=== PATIENT | female | born 1995 | race Two or more races ===

== ENCOUNTER 2024-10-16 09:45 | Emergency (ER) | payer BC, MEDICAID, SELFPAY ==
[2024-10-16 10:04] VITALS: BP 118/78; PULSE 113; RESP 19; TEMP 39.4; O2SAT 97; BMI 30.3
--- NOTE | 2024-10-16 10:11 | XR_ITS ---
Examination: PA lateral chest 2 views Technique: Upright PA lateral chest 2 views Indications: Coughing beginning 4 days ago Findings: Normal heart size No lobar pneumonia Minor subsegmental atelectasis left midlung No pulmonary edema Intact osseous structures Impression: No pneumonia identified
[2024-10-16 10:36] VITALS: TEMP 39.4
[2024-10-16] MEDS: ACETAMINOPHEN 500 MG TABLET 1000 MG PO (10:36)
[2024-10-16] MEDS: ONDANSETRON ODT 4 MG TABRAP PO (10:37)
--- NOTE | 2024-10-16 11:21 | EDNOTE_ITS ---
Upper Respiratory Inf. RME/HPI General Chief Complaint: Flu Like Symptoms Stated Complaint: Cough, fever, SOB, vomiting Time Seen by Provider: 10/16/24 09:55 Arrival date/time: 10/16/24 09:45 28-year-old female with no significant medical problems presents the emergency department complains of cough, congestion, body aches patient reports no chest pain or shortness of breath. Patient ports fever ongoing x 1 day there are no other associated symptoms or aggravating factors no other modifying factors, patient denies taking medication before coming to ER today Limitations: no limitations Related Data Home Medications ?Medication ?Instructions ?Recorded ?Confirmed vitamins-iron fumarate 27 1 tab PO QDAY 07/23/19 07/01/23 mg iron-folic acid 0.8 mg tablet ( Vitamin) Previous Rx's ?Medication ?Instructions ?Recorded albuterol sulfate 90 mcg/actuation 2 puff inhalation QID PRN 06/15/22 aerosol inhaler shortness of breath or wheezing #8.5 grams docusate sodium 100 mg capsule 100 mg PO BID #60 caps 07/02/23 (Colace) hydrocortisone 2.5 % topical cream 1 applic ME QDAY PRN hemorrhoids 07/02/23 with perineal applicator #30 tubes (Proctosol HC) ibuprofen 800 mg tablet 800 mg PO Q6H PRN pain #90 tabs 07/02/23 lanolin 50 % topical ointment 1 applic topical TID PRN skin 07/02/23 irritation #15 tubes witch tyree 50 % topical pads 1 pad topical BID #100 ea 07/02/23 (Tucks (witch tyree)) benzonatate 100 mg capsule 100 mg PO TID #14 caps 10/16/24 ibuprofen 800 mg tablet 800 mg PO TID PRN pain #30 tabs 10/16/24 ondansetron 4 mg disintegrating 4 mg PO Q8H PRN nausea and 10/16/24 tablet vomiting #10 tabs Allergies Allergy/AdvReac Type Severity Reaction Status Date / Time No Known Allergies Allergy Verified 05/07/23 12:15 Review of Systems Review of Systems Systems Reviewed: All systems reviewed, normal except as documented Constitutional Constitutional: Reports system reviewed and no additional complaints, except as documented, Denies fever(s) and Denies headache(s) Eyes Eyes: Reports system reviewed and no additional complaints, except as documented and Denies blurry vision ENT Ears, Nose, Mouth, and Throat: Reports system reviewed and no additional complaints, except as documented, Denies headache(s), Reports nasal congestion and Reports nasal discharge Cardiovascular Cardiovascular: Reports system reviewed and no additional complaints, except as documented, Denies chest pain and Denies dyspnea Respiratory Respiratory: Reports system reviewed and no additional complaints, except as documented, Denies chest congestion, Denies cough and Denies dyspnea Gastrointestinal Gastrointestinal: Reports system reviewed and no additional complaints, except as documented and Denies abdominal pain Integumentary/Breasts Skin/Breast: Reports system reviewed and no additional complaints, except as documented and Denies rash Neurologic Neurologic: Reports system reviewed and no additional complaints, except as documented, Reports as per HPI and Denies headache(s) Past Medical History Past Medical History NEUROLOGIC: Negative Neurological Disorders or Seizures CARDIAC: Negative Cardiac Disorders or Congestive Heart Failure RESPIRATORY: Positive Asthma and Pneumonia; Negative Chronic Obstructive Pulmonary Disease (COPD) GASTROINTESTINAL: Negative Gastrointestinal Disorders GENITOURINARY: Negative Genitourinary Disorders or Renal Disease REPRODUCTIVE: Positive Previous Pregnancies; Negative Genital Herpes, Gonorrhea or Syphilis MUSCULOSKELETAL: Negative Musculoskeletal Disorders ENDOCRINE: Negative Endocrine Disorders, Diabetes Mellitus Type 1 or Diabetes Mellitus Type 2 HEMATOLOGIC: Negative Blood Disorders or Sickle Cell Disease PSYCHO/SOCIAL: Positive Depression, Anxiety and Depression OTHER HISTORY: Negative Hospitalization, Autoimmune Disease, Falls, Blood Transfusions, Blood Transfusion Reaction, Anesthesia Reactions or Cancer Family History FAMILY HISTORY: Positive Family Cardiac Disorders, Family Cancer and Family Surgery; Negative Family Psychiatric Problems, Family Respiratory Disorders, Family Gastrointestinal Problems or Family Anesthesia Reaction Surgical History SURGICAL: Positive Abdominal Surgery; Negative Section Social History SMOKING STATUS: Never smoker SECOND HAND EXPOSURE: No SUBSTANCE USE: marijuana (smokes occasionally) ED Exam General Limitations: Present no limitations General appearance: Present alert and in no apparent distress Head Head exam: Present atraumatic, normocephalic and normal inspection Eye Eye exam: Present normal appearance, PERRL and EOMI; Absent conjunctival injection ENT ENT exam: Present normal exam, normal oropharynx and mucous membranes moist Neck Neck exam: Present normal inspection, full ROM and trachea midline Chest Chest inspection: Present normal inspection and symmetric chest wall rise Respiratory Respiratory exam: Present normal lung sounds bilaterally; Absent respiratory di stress Cardiovascular Cardiovascular exam: Present regular rate, normal rhythm and normal heart sounds Abdominal Exam Abdominal exam: Present soft and normal bowel sounds; Absent distention, tenderness, guarding, rebound or rigidity Extremities Exam Extremities exam: Present normal inspection and full ROM Back Exam Back exam: Present normal inspection and full ROM Neurological Exam Neurological exam: Present alert, oriented X3, CN II-XII intact, normal gait and reflexes normal; Absent motor sensory deficit Psychiatric Psychiatric exam: Present normal affect and normal mood Skin Skin exam: Present warm, dry, intact and normal color; Absent rash Course Quality Measures none Orders Category Date Time Status Bedside Influenza A&B Antigen Test NOW Care 10/16/24 10:04 Completed XR chest 2V Stat Exams 10/16/24 10:11 Completed Acetaminophen Tab [Tylenol ES Tab] Med 10/16/24 10:05 Discontinued 1,000 mg PO X1 ONE Ondansetron Odt [Zofran Odt] Med 10/16/24 10:11 Discontinued 4 mg PO X1 ONE Vital Signs Vital signs: Vital Signs Temperature 103.0 F H 10/16/24 10:04 Pulse Rate 113 H 10/16/24 10:04 Respiratory Rate 19 10/16/24 10:04 Blood Pressure 118/78 10/16/24 10:04 Pulse Oximetry (%) 97 10/16/24 10:04 Oxygen Delivery Method Room Air 10/16/24 10:04 O2 saturation 97% room air within normal limits Upper Respiratory Infection MDM Narrative MDM Narrative:: 28-year-old female with no significant medical problems presents the emergency department complains of cough, congestion, body aches patient reports no chest pain or shortness of breath. Patient reports fever ongoing x 1 day there are no other associated symptoms or aggravating factors no other modifying factors, patient denies taking medication before coming to ER today Patient reports no chance of Although patient is febrile patient does not appear ill or toxic Chest x-ray obtained patient checked for the flu Both the flu and chest x-ray are both negative ENT exam is otherwise normal lungs are clear to auscultation patient has soft nontender abdomen Symptoms highly consistent with viral illness Patient discharged home in no distress to follow-up with primary care doctor in the next 24 to 48 hours and for any worsening symptoms to return to the ER immediately Patient data External records reviewed:: [facility] previous records Clinical information provided by:: patient Social determinants that could affect healthcare access:: none Patient has the following chronic illnesses:: None How is presenting disease/condition affected by chronic disease/condition?: no chronic disease Evaluation data The following diagnostics were reviewed and interpreted by me:: lab results and radiology exam(s) Lab and/or radiology exams considered but not ordered:: Labs radiology obtained Interpretation Summary: Reviewed by me Medications / Prescriptions Medications or Prescriptions considered but not ordered:: Given Medication administrations:: Medication Administration History Discontinued Medications Acetaminophen (Acetaminophen 500 Mg Tablet) 1,000 mg PO X1 ONE Stop: 10/16/24 10:06 Last Admin: 10/16/24 10:36 Dose: 1,000 mg Documented By: PVAAN Ondansetron HCl (Ondansetron Odt 4 Mg Tabrap) 4 mg PO X1 ONE; Protocol Stop: 10/16/24 10:12 Last Admin: 10/16/24 10:37 Dose: 4 mg Documented By: PAVAN Given Consultations Consultation(s) initiated? (list below): No Diagnosis Upper Respiratory Differential Diagnosis: upper respiratory infection, otitis media, sinusitis, viral infection and pharyngitis Most likely diagnosis given after review of the tests above:: Viral illness Admission Indicated Admission indicated?: not indicated Admission Request Was there a request for admission?: No Disposition Plan Disposition Plan: Discharge Discharge Attestation Discharge Attestation: The patient and all family members were given an opportunity to ask questions an d understood the discharge instructions. Discharge instructions specifically effects, indications for sooner follow up or return to the emergency department, and the expected course of current diagnosis. Patient condition: Stable Discharge Plan Plan Patient Disposition: HOME (Self Care) Disposition Comment: Stable Prescriptions/Referrals Prescriptions/Med Rec: New ibuprofen 800 mg tablet 800 mg PO TID PRN (Reason: pain) Qty: 30 0RF benzonatate 100 mg capsule 100 mg PO TID Qty: 14 0RF ondansetron 4 mg tablet,disintegrating 4 mg PO Q8H PRN (Reason: nausea and vomiting) Qty: 10 0RF No Action Vitamin 27 mg iron- 0.8 mg Tablet 1 tab PO QDAY albuterol sulfate 90 mcg/actuation HFA aerosol inhaler 2 puff inhalation QID PRN (Reason: shortness of breath or wheezing) Qty: 8.5 0RF ibuprofen 800 mg tablet 800 mg PO Q6H MDD 4 PRN (Reason: pain) Qty: 90 0RF hydrocortisone [Proctosol HC] 2.5 % cream with perineal applicator 1 applic ME QDAY PRN (Reason: hemorrhoids) Qty: 30 0RF docusate sodium [Colace] 100 mg capsule 100 mg PO BID Qty: 60 0RF Tucks (witch tyree) 50 % pads, medicated 1 pad topical BID Qty: 100 0RF lanolin 50 % ointment 1 applic topical TID PRN (Reason: skin irritation) Qty: 15 0RF Referrals: Jenna Santos PA-C [Primary Care Provider] - In 1 week Problem List Clinical Impression: Viral illness Patient/Caregiver Discharge Instructions Education Materials: ED Viral Syndrome (Adult) Additional Instructions: Please follow up with your primary care doctor in the next 24-48hrs for any worsening symptoms return here immediately Print Language: Mosotho Stand Alone Forms: Мария Award Info., Work/School Release, Patient Portal Info Letter PA/AISHA Supervising Physician JAQUAN/AISHA Supervising Physician: Dr Snow
[2024-10-16 11:33] VITALS: BP 116/75; PULSE 100; RESP 18; TEMP 38.1; O2SAT 98
== END 2024-10-16 11:33 | disposition home or self-care (01) ==
PROVIDERS: Emergency Provider Emergency Medicine; PCP Physician Assistant
DX: B34.9 Viral infection, unspecified (principal); R05.9 Cough, unspecified
CPT/HCPCS: 71046; 87400; 99283; Q0162; A9270